=== PATIENT | male | born 1965 | race Caucasian/White ===

== ENCOUNTER → 2021-10-24 14:19 | Outpatient (BNVA) | payer SELFPAY | PROVIDERS: PCP Nurse Practitioner Family; Referring Provider Nurse Practitioner Family; Visit Provider Student in an Organized Health Care Education/Training Program | DX: G56.01 Carpal tunnel syndrome, right upper limb (principal) | CPT/HCPCS: 73130 ==

== ENCOUNTER 2021-10-30 06:40 | Day surgery (SDC) | payer SELFPAY ==
[2021-10-29 11:58] VITALS: BMI 19.6
[2021-10-30] VITALS (7 sets, daily range): BP systolic 123–150; BP diastolic 79–88; PULSE 69–86; RESP 17–20; TEMP 36.3–36.7; O2SAT 98–99
[2021-10-30] MEDS: sodium chloride 0.9% 1,000 ML 30 ML IV (07:46)
[2021-10-30] MEDS: acetaminophen 1,000 MG/100 ML PIGGYBACK 400 MG IV (07:46)
[2021-10-30] MEDS: ketorolac 30 mg/mL INJ IVP (07:48)
--- NOTE | 2021-10-30 08:34 | ANES.PREANE2 ---
Pre-Anesthetic Assessment Height/Weight: Height 1.83 m Weight 65.771 kg Temp Pulse Resp BP Pulse Ox O2 Del Method 97.3 F L 86 17 128/82 98 10/30/21 07:17 10/30/21 07:17 10/30/21 07:17 10/30/21 07:17 10/30/21 07:17 10/30/21 07:18 Preop Diagnosis: right carpal tunnel syndrome Operation Date: 10/30/21 08:40 Proposed Procedures p RIGHT CARPAL TUNNEL RELEASE, [id number],G56.00(Right) - Randy Kemp DO Familial anesthetic complications: None Was Beta Luis Armnado taken within 24 hours: N/A Was Clonidine taken within 24 hours: N/A Last intake: Intake Last Liquid Date 10/29/21 Last Liquid Time 23:00 Last Solid Date 10/29/21 Last Solid Time 19:00 Social Tobacco and No alcohol Exam alert, oriented x 3, clear to auscultation bilaterally and regular rate & rhythm Airway Mallampati: Class II Dentition: full Neuropsych Neuropathy Anesthetic Plan ASA status: 2 Risk of > 500 ml blood loss (7ml/kg in children): No Medications/Allergies Home Medications Medication Instructions Recorded Confirmed Last Taken Type acetaminophen 325 mg tablet 325 mg PO QID PRN Pain 10/28/21 10/30/21 10/28/21 History (Tylenol) carisoprodol 250 mg tablet (Soma) 250 mg PO TID PRN Pain 10/28/21 10/30/21 10/29/21 20:00 History hydrocodone 10 mg-acetaminophen 1 tab PO Q8H PRN Pain 10/28/21 10/30/21 10/29/21 07:00 History 325 mg tablet Allergies Allergy/AdvReac Type Severity Reaction Status Date / Time No Known Allergies Allergy Verified 10/30/21 07:14 Current Medications Generic Name Dose Route Start Last Admin Trade Name Freq PRN Reason Stop Dose Admin Sodium Chloride 1,000 mls @ 30 mls/hr 10/30/21 07:15 10/30/21 07:46 Sodium Chloride 0.9% IV 10/31/21 07:14 30 mls/hr .Q24H CLAYTON Administration PFSH Anesthesia Medical History (Updated 10/28/21 @ 10:08 by Lalit Gutierrez DO) Bilateral inguinal hernia Chronic back pain Constipation Essential hypertension Ulcer Surgical History History of laparotomy for gastric ulcer History of right inguinal hernia repair Hx of tonsillectomy Social History Smoking and tobacco status: current every day smoker cigarettes Packs smoked per day: 1.5 Data Anesthesia Cardiac Studies: No Data to Display
[2021-10-30] MEDS: ceFAZolin 2,000 MG in sodium chloride 0.9% (plus) 50 ML 100 MG IV (08:49)
--- NOTE | 2021-10-30 08:50 | W.PM.OPSUD ---
Surgery/Procedure H&P Update DATE OF PROCEDURE: October 30, 2021 DATE H&P PERFORMED: 10/24/21 CHANGES TO PREVIOUS DOCUMENTATION: None PREOP DIAGNOSIS: right carpal tunnel syndrome PRIMARY INDICATION FOR PROCEDURE: Right carpal tunnel syndrome PLANNED PROCEDURE: Operation Date: 10/30/21 08:40 Proposed Procedures p RIGHT CARPAL TUNNEL RELEASE, [id number],G56.00(Right) - Randy Kemp DO
[2021-10-30] MEDS: lidocaine 1% INJ 50 mL INJECTION (09:05)
--- NOTE | 2021-10-30 09:31 | P.OP_ITS ---
Brief Operative Note Date of procedure: 10/30/21 Pre-op diagnosis: Right carpal tunnel syndrome Post-op diagnosis: same Procedure Done: Right carpal tunnel release Surgeon: Randy Kemp Estimated blood loss (mL): 1 Complications: None Post-op Plan: Patient recovered in PACU. Will discharge home same day. Will be given appropriate discharge instructions as well as pain medication. We will follow- up in the office in 2 weeks. Condition: stable Disposition: same day Coding Level of Care Code Acute [employer]er Casing for Jaden Fish
--- NOTE | 2021-10-30 09:33 | PM.PACU ---
PACU note Narrative: Patient seen evaluated recovering in PACU. Pain controlled. Patient's fingers were well perfused. Brisk capillary refill less than 2 seconds. Patient is able to open hand and make a fist. Decreased sensation to the right hand in median nerve distribution secondary to local anesthesia. Exam: awake (See narrative for detailed exam) Disposition: discharged
--- NOTE | 2021-10-30 13:35 | P.OP_ITS ---
Operative Report Date of procedure: October 30, 2021 Pre-op diagnosis: Preop Diagnosis right carpal tunnel syndrome Post-op diagnosis: same Post-op findings: See operative note Procedure done: Right carpal tunnel release Surgeon: Randy Kemp DO Estimated blood loss: 1 mL 11 minutes IV fluids: See anesthesia record Complications: None Findings: See operative note Brief History: Ha presents to the OR today for a right carpal tunnel release. Patient been worked up in outpatient setting and confirms preoperative diagnosis of a right carpal tunnel syndrome. He states he has had this for over 15 years and complains of decreased sensation of the median nerve distribution. His physical exam findings are consistent with right carpal tunnel syndrome actually with beginning motor weakness and some early stages of atrophy in the thenar eminence. At this point time we had detailed discussion about persistent nonoperative treatment versus operative intervention. He has utilize night splints and ultimately given him already showing signs of some motor weakness I do not feel he is a great candidate for an injection or further nonoperative treatment. We talked about nonoperative and operative intervention as far as the risk benefits complications alternatives to each. Risks include but not limited to make it better make it worse, wound issues, infection, injury to nerves or vessels or tendons and no no return of full motor function given the already existing weakness. With this understanding in place he agrees to proceed with surgical intervention. Patient consent was obtained in the office for a right carpal tunnel release. Patient elects to proceed with surgical intervention all questions answered. Procedure: Patient was seen evaluated in the preoperative holding area. The consent was reviewed with the patient for right carpal tunnel release. The correct extremity was then marked. Patient was seen evaluated by the anesthesia department as well as the preoperative team. Once cleared for surgery patient was then taken it in the [facility] to the OR suite and transported onto the OR table with an armboard to the right upper extremity. All bony prominences were well-padded and patient was secured appropriately to the bed. Patient underwent anesthesia per the anesthesia department. Once patient was appropriately anesthetized a nonsterile tourniquet was applied to the right upper extremity. Patient received appropriate preoperative antibiotics. Final timeout was performed. The right upper extremity was then prepped and draped in standard orthopedic fashion. Prior to the procedure patient underwent a local anesthetic injection of 5 mL of lidocaine 2% and 5 mL of ropivacaine for intraoperative and postoperative pain control. Esmarch tourniquet was used exsanguinate the extremity and tourniquet was insufflated to 250 mmHg. Right hand was secured with a lead hand to the OR table. A standard carpal tunnel incision with my most distal extent being at Corona's cardinal line in line with the fourth ray on the ulnar side was subsequently made in roughly 2.5 centimeters in length. Sharp scalpel excision was made through skin and subcutaneous tissue. Utilize self retainer and encountered longitudinal fibers of the palmar fascia. This was then incised longitudinally and self-retaining retractor was then placed deep. I then utilized sharp scalpel excision to feather through the fat and fascia directly on top of the transverse carpal ligament. The transverse carpal ligament and transverse fibers were then incised and gentle feathering motion until I entered the carpal tunnel. Once entering the carpal tunnel I switched into Littler dissection scissors and subsequently utilizing spread and small scissoring motions completed my carpal tunnel release distally till I encountered the palmar fat care was made for direct visualization utilizing my loupe magnification to not injure the recurrent motor branch. Once distally my carpal tunnel was completely released I then spread my Littler dissection scisso rs proximally and superficial on top of the transverse carpal ligament and placed my Kiersten rake retractor. This was then elevated and held by my legal assistant while I utilized Littler dissection scissors and slow careful fashion to release the rest of the transverse carpal ligament proximally care was made that I curved my scissors ulnarly to not injure the palmar cutaneous nerve. Tunnel was released under direct visualization with loupe magnification. At this point the contents of the median nerve was identified to being in slight hourglass shape showing constriction at the carpal tunnel. Mild irritation/inflammation was noted around the nerve. At this point I utilized a [place] to verify complete carpal tunnel release into the media antebrachial fascia into the distal aspect of the forearm as well as following the median nerve into the palm of the hand and no restrictions or bands were noted to further need decompression. This completed the carpal tunnel. Wound bed was then thoroughly irrigated. Tourniquet was deflated. Hemostasis was satisfactory with bipolar electrocautery as well as pressure. Hand was warm and well-perfused. I then closed the skin with interrupted horizontal mattress nylon suture. Wound was then dressed with Xeroform fluffs Curlex as well as an Chavez wrap. Patient was then awakened from anesthesia transferred to the [facility] and taken to PACU in stable condition. Disposition patient will recover in PACU and discharge home later today. Patient will be given appropriate discharge instructions as well as pain medication and appropriate follow-up instructions. We will follow-up with me in office in 2 weeks. He understands he should leave his dressing on in place for up to 3 days and then this can be subsequently taken down hand can be rinsed clean and a new Band-Aid or dressing can be applied. Encourage range of motion of the hand is much as tolerated. We will see him in office in 2 weeks. All questions answered.
--- NOTE | 2021-10-30 15:09 | ANE.PACU2 ---
Inpatient post-anesthesia follow up: Airway intact: Yes Vital signs: Temperature 97.9 F Pulse Rate 72 Respiratory Rate 17 Blood Pressure 145/88 Pulse Oximetry 99 Oxygen Delivery Me thod Room Air Oxygen Flow Rate Fraction of Inspir ed Oxygen Hydration adequate: Yes Nausea and vomiting: No Pain level: 1 Mental status: Baseline
== END 2021-10-30 10:23 | disposition home or self-care (01) ==
PROVIDERS: PCP Nurse Practitioner Family; Visit Provider Student in an Organized Health Care Education/Training Program
PROC: (CPT 64721; principal; 2021-10-30 08:30)
DX: G56.01 Carpal tunnel syndrome, right upper limb (principal); F17.210 Nicotine dependence, cigarettes, uncomplicated
CPT/HCPCS: 64721; J1885; J2250; J2704; J2795; J3010; J7030

== ENCOUNTER 2021-11-07 09:33 | Day surgery (SDC) | payer SELFPAY ==
[2021-11-07] VITALS (8 sets, daily range): BP systolic 104–154; BP diastolic 7–94; PULSE 66–96; RESP 15–20; TEMP 36.4–36.7; O2SAT 97–100
[2021-11-07] MEDS: sodium chloride 0.9% 1,000 ML 30 ML IV (10:15)
--- NOTE | 2021-11-07 10:29 | ANES.PREANE2 ---
Pre-Anesthetic Assessment Height/Weight: Height 1.83 m Weight 65.771 kg Temp Pulse Resp BP Pulse Ox 97.5 F L 80 17 154/94 98 11/07/21 10:06 11/07/21 10:06 11/07/21 10:06 11/07/21 10:06 11/07/21 10:06 Preop Diagnosis: bilateral inguinal hernias Operation Date: 11/07/21 11:15 Proposed Procedures p lap inguinal hernia repair bilateral with mesh [id number],K40.2(Bilateral) - Lalit Gutierrez DO Familial anesthetic complications: None Was Beta Luis Armando taken within 24 hours: N/A Was Clonidine taken within 24 hours: N/A Last intake: Intake Last Liquid Date 11/07/21 Last Liquid Time 00:05 Last Solid Date 11/06/21 Last Solid Time 18:30 Social Tobacco and No alcohol Exam alert, oriented x 3, clear to auscultation bilaterally and regular rate & rhythm Airway Mallampati: Class II Dentition: full Anesthetic Plan ASA status: 2 Anesthesia: General Risk of > 500 ml blood loss (7ml/kg in children): No Medications/Allergies Home Medications Medication Instructions Recorded Confirmed Last Taken Type carisoprodol 250 mg tablet (Soma) 250 mg PO TID PRN Pain 10/28/21 11/07/21 11/02/21 History hydrocodone 10 mg-acetaminophen 1 tab PO Q6H PRN Pain 7 days #28 10/30/21 11/07/21 11/07/21 Rx 325 mg tablet tabs Allergies Allergy/AdvReac Type Severity Reaction Status Date / Time No Known Allergies Allergy Verified 11/07/21 09:55 Current Medications Generic Name Dose Route Start Last Admin Trade Name Freq PRN Reason Stop Dose Admin Sodium Chloride 1,000 mls @ 30 mls/hr 11/07/21 10:00 11/07/21 10:15 Sodium Chloride 0.9% IV 11/08/21 09:59 30 mls/hr .Q24H [place] Administration PFSH Anesthesia Medical History (Updated 10/30/21 @ 09:40 by Randy Kemp DO) Bilateral inguinal hernia Chronic back pain Constipation Essential hypertension Right carpal tunnel syndrome Ulcer Surgical History History of laparotomy for gastric ulcer History of right inguinal hernia repair Hx of tonsillectomy Social History Smoking and tobacco status: current every day smoker cigarettes Packs smoked per day: 1.5 Data Anesthesia Cardiac Studies: No Data to Display
--- NOTE | 2021-11-07 11:05 | W.PM.OPSUD ---
Surgery/Procedure H&P Update DATE OF PROCEDURE: November 07, 2021 DATE H&P PERFORMED: 10/28/21 PREOP DIAGNOSIS: bilateral inguinal hernias PLANNED PROCEDURE: Operation Date: 11/07/21 11:15 Proposed Procedures p lap inguinal hernia repair bilateral with mesh [id number],K40.2(Bilateral) - Lalit Gutierrez DO
[2021-11-07] MEDS: ceFAZolin 2,000 MG in sodium chloride 0.9% (plus) 50 ML 100 MG IV (11:40)
--- NOTE | 2021-11-07 13:10 | PM.OP ---
Operative Report Date of procedure: November 07, 2021 Pre-op diagnosis: Preop Diagnosis bilateral inguinal hernias Post-op diagnosis: same Procedure done: Laparoscopic (TEPP) repair of bilateral inguinal hernias with mesh Implants: Left and right extra-large 3D max Bard meshes Surgeon: Dr. Lalit Gutierrez DO Anesthesia: General Estimated blood loss (mL): 5 Complications: None apparent Brief History: This is a very pleasant 56-year-old gentleman with a recurrent right inguinal hernia and a left inguinal hernia. Repair was indicated. The risks and benefits of the procedure were explained and documented. Procedure: Patient was wheeled into the operative room and placed on the OR table in a supine position. Abdomen was inspected prepped and draped in usual sterile fashion. Time-out was performed and all present were in agreement. A 15 blade scalpel was used to make 1.2 centimeter incision infraumbilically. Combination of sharp and blunt dissection was performed down to the anterior rectus sheath which was opened sharply. The dissecting balloon was then inserted into the space of Retzius and blown up. We put the camera into the port and identified that we were in the correct space. I then placed 2 5 millimeter trocars suprapubically in the midline. I then used endokitners to bluntly dissect in the space of Retzius out laterally. An indirect inguinal hernia was identified on the right. Blunt dissection was performed to dissect down the hernia sac until the vas deferens dove medially. A large right inguinal mesh was then placed into the space of Retzius. The mesh was unrolled and tacked once medially at the pubic bone. The mesh laid out nicely over the spermatic cord. An indirect inguinal hernia was identified on the left. Blunt dissection was performed to dissect down the hernia sac until the vas deferens dove medially. A large left inguinal mesh was then placed into the space of Retzius. The mesh was unrolled and tacked once medially at the pubic bone. The mesh laid out nicely over the spermatic cord. I watched the hernia sacs remain in place as insufflation was removed. Incisions were closed with 4 O Vicryl in a subcuticular interrupted fashion. Skin glue was applied. Patient tolerated the procedure well.
[2021-11-07] MEDS: HYDROcodone-acetaminophen 10-325 mg Tablet 1 TAB PO (13:43)
== END 2021-11-07 14:02 | disposition home or self-care (01) ==
PROVIDERS: PCP Nurse Practitioner Family; Visit Provider Surgery
PROC: (CPT 49650; principal; 2021-11-07 11:05)
DX: K40.20 Bilateral inguinal hernia, without obstruction or gangrene, not specified as recurrent (principal); I10 Essential (primary) hypertension; F17.210 Nicotine dependence, cigarettes, uncomplicated
CPT/HCPCS: 49650; 51702; C1781; J1170; J2710; J3010; J3490; J7030